=== PATIENT | male | born 1985 | race Caucasian/White ===

== ENCOUNTER 2020-07-28 17:22 | Emergency (ER) | payer OTHER ==
[2020-07-28 17:26] VITALS: TEMP 98.3; BMI 28.1
[2020-07-28] MEDS ORDERED: amLODIPine BESYLATE 10 MG TABLET (FP) PO ONE (18:29)
[2020-07-28] MEDS ORDERED: amLODIPine BESYLATE 5 MG TABLET (FP) ONE (18:34)
[2020-07-28 18:48] VITALS: PULSE 83
[2020-07-28 20:10] VITALS: BP 146/106
== END 2020-07-28 20:16 | disposition home or self-care (01) ==
LOC: JER 17:22
DX: R42 Dizziness and giddiness (principal); T50.905A Adverse effect of unspecified drugs, medicaments and biological substances, initial encounter; I10 Essential (primary) hypertension
CPT/HCPCS: 93005; 93010; 99283-25